=== PATIENT | female | born 1970 | race Caucasian/White ===

== ENCOUNTER → 2017-03-24 | Day surgery (SDC) | payer BC ==
[2017-03-24 09:37] VITALS: RESP 16; BMI 20.1
[2017-03-24 11:05] VITALS: BP 111/77; PULSE 71; TEMP 98
--- NOTE | 2017-03-24 11:40 | MM ---
Stereotactic Mammotome core biopsy left breast. HISTORY: Increasing microcalcifications left breast The calcifications in question within the left breast were targeted by the undersigned. Procedure was performed by the undersigned. Informed consent was obtained and all of the patients questions were answered. The standard sterile technique was utilized and appropriate local anesthesia was obtained with 1% lidocaine. Mammotome probe was advanced and multiple core samples were obtained and sent to pathology for interpretation. Microclip marker was deployed at the site of biopsy. Post procedural mammogram demonstrates appropriate deployment of radiopaque clip marker. The patient tolerated the procedure well and left the department in stable condition. Pathology results are pending. IMPRESSION: Successful stereotactic core biopsy left breast with pathology results pending. Pathology Results: Benign BREAST, LEFT SITE A, CORE BIOPSY: FIBROCYSTIC CHANGES INCLUDING FIBROSIS, CYSTS , APOCRINE METAPLASIA AND CALCIFICATIONS. Recommendation Follow up mammogram of the left breast in 6 months. RAJENDRA
== END ==
LOC: RADMAMWWP 09:03
PROVIDERS: ATTEND Student in an Organized Health Care Education/Training Program
DX: N60.32 Fibrosclerosis of left breast (principal); N60.82 Other benign mammary dysplasias of left breast; R92.1 Mammographic calcification found on diagnostic imaging of breast
CPT/HCPCS: 88305; 19081; A4648; J2001

== ENCOUNTER 2017-04-20 20:24 | Emergency (ER) | payer BC ==
[2017-04-20 20:34] VITALS: RESP 18
[2017-04-20 21:08] LABS: Amphetamine Screen,Urine Not Detected (NotDetected); Barbiturate Screen,Urine Not Detected (NotDetected); Benzodiazepines Screen,Urine Detected (NotDetected); Cocaine Screen,Urine Not Detected (NotDetected); Methadone Screen, Urine Not Detected (NotDetected); Opiate Screen,Urine Not Detected (NotDetected); Oxycodone Screen, Urine Not Detected (NotDetected); Phencyclidine Screen,Urine Not Detected (NotDetected); Tricyclic Antidepressant,Urine Not Detected (NotDetected); Urn Cannabinoid Scrn Not Detected (NotDetected)
--- NOTE | 2017-04-20 21:09 | ED ---
Psych HPI - General Chief Complaint: Psychiatric Symptoms Stated Complaint: Anxiety Time Seen by Provider: 04/20/17 20:36 Source: patient, RN notes reviewed Mode of arrival: ambulatory Limitations: no limitations - History of Present Illness Initial Comments: This a 46-year-old female presents emergency Department with chief complaint of depression and anxiety issues. Patient states she's been having worsening depression last 2 weeks. Patient saw primary care physician and had lab work which was normal started on Lexapro took first dose tonight though it upset her stomach she vomited. Patient states that this is a that time of year due to increased stress from her work and family activities. Patient states that she came to the point tonight where she felt that she did not want to wake up anymore. She states that she knows this is not right she does not want to kill herself but she cannot feel like this any longer. Denies any illicit drug use or alcohol abuse no homicidal ideation. - Related Data Home Medications Medication Instructions Recorded Confirmed ALPRAZolam [Xanax] 0.25 mg PO BID PRN 04/20/17 04/20/17 Escitalopram [Lexapro] 10 mg PO DAILY 04/20/17 04/20/17 Allergies Allergy/AdvReac Type Severity Reaction Status Date / Time Penicillins Allergy Rash/Hives Verified 04/20/17 21:10 Review of Systems ROS Statement: Those systems with pertinent positive or pertinent negative responses have been documented in the HPI. ROS Other: All systems not noted in ROS Statement are negative. Past Medical History Past Medical History: No Reported History History of Any Multi-Drug Resistant Organisms: None Reported Past Surgical History: Uterine Ablation Additional Past Surgical History / Comment(s): 2010 Breast biopsy Past Anesthesia/Blood Transfusion Reactions: No Reported Reaction Past Psychological History: Anxiety, Depression Smoking Status: Never smoker Past Alcohol Use History: Daily Past Drug Use History: None Reported General Exam Limitations: no limitations General appearance: alert, in no apparent distress Head exam: Present: atraumatic, normocephalic, normal inspection Eye exam: Present: normal appearance, PERRL, EOMI. Absent: scleral icterus, conjunctival injection, periorbital swelling ENT exam: Present: normal exam, normal oropharynx, mucous membranes moist, TM's normal bilaterally Neck exam: Present: normal inspection, full ROM. Absent: tenderness, meningismus, lymphadenopathy Respiratory exam: Present: normal lung sounds bilaterally. Absent: respiratory distress, wheezes, rales, rhonchi, stridor Cardiovascular Exam: Present: regular rate (Tachycardic on triage though not tachycardic on exam), normal rhythm, normal heart sounds. Absent: systolic murmur, diastolic murmur, rubs, gallop, clicks GI/Abdominal exam: Present: soft, normal bowel sounds. Absent: distended, tenderness, guarding, rebound, rigid Neurological exam: Present: alert, oriented X3, CN II-XII intact, reflexes normal. Absent: motor sensory deficit Psychiatric exam: Present: depressed, other (Patient is tearful) Skin exam: Present: warm, dry, intact, normal color. Absent: rash Course Vital Signs 04/20/17 20:26 Temperature 97.5 F L Pulse Rate 120 H Respiratory 18 Rate Blood Pressure 135/84 O2 Sat by Pulse 97 Oximetry Medical Decision Making - Medical Decision Making 38-year-old female presented from for psychiatric evaluation, depression. Patient was evaluated by EPS he did not recommend inpatient treatment. Patient was set up for outpatient services. Patient is stable and safe to go home with . - Lab Data Lab Results 04/20/17 Range/Units 20:45 Urine Opiates Screen Not Detected (NotDetected) Ur Oxycodone Screen Not Detected (NotDetected) Urine Methadone Screen Not Detected (NotDetected) Ur Propoxyphene Screen Not Detected (NotDetected) Ur Barbiturates Screen Not Detected (NotDetected) U Tricyclic Antidepress Not Detected (NotDetected) Ur Phencyclidine Scrn Not Detected (NotDetected) Ur Amphetamines Screen Not Detected (NotDetected) U Methamphetamines Scrn Detected H (NotDetected) U Benzodiazepines Scrn Detected H (NotDetected) Urine Cocaine Screen Not Detected (NotDetected) U Marijuana (THC) Screen Not Detected (NotDetected) Disposition Clinical Impression: Depression Disposition: HOME SELF-CARE Condition: Stable Instructions: Depression (ED) Additional Instructions: Please return to the Emergency Department if symptoms worsen or any other concerns. Referrals: Tab Grier MD [Primary Care Provider] - 1-2 days Time of Disposition: 00:45
[2017-04-21] MEDS ORDERED: LORazepam 1 MG TAB PO STA (00:28)
[2017-04-21 01:35] VITALS: BP 134/65; PULSE 90; TEMP 97
== END 2017-04-21 01:35 | disposition home or self-care (01) ==
LOC: EC 20:24
DX: F32.9 Major depressive disorder, single episode, unspecified (principal); F41.9 Anxiety disorder, unspecified; Z88.0 Allergy status to penicillin; Z79.899 Other long term (current) drug therapy
CPT/HCPCS: 80306; 82075; 99284

== ENCOUNTER → 2018-04-24 | Outpatient (CLI) | payer BC ==
--- NOTE | 2018-05-01 14:47 | MM ---
Reason for exam: screening (asymptomatic). Last mammogram was performed 1 year and 1 month ago. History: Family history of breast cancer in maternal aunt at age 50. Benign MG stereo VAD BX LT of the left breast, March 24, 2017. Benign left mammotome panel of the left breast, May 30, 2009. Benign right mammotome panel of the right breast, May 30, 2009. Took hormonal contraceptives for 6 years beginning at age 16. Physical Findings: A clinical breast exam by your physician is recommended on an annual basis and results should be correlated with mammographic findings. MG 3D Screening Mammo W/Cad Bilateral CC and MLO view(s) were taken. Prior study comparison: March 11, 2017, bilateral MG diagnostic mammo w CAD WILL. March 12, 2016, bilateral MG screening mammo w CAD. The breast tissue is extremely dense which could obscure a lesion on mammography. Previous mammotome biopsy in the right breast x 1 and in the left breast x 2. Diffuse bilateral calcifications redemonstrated. No significant changes when compared with prior studies. ASSESSMENT: Benign, BI-RAD 2 RECOMMENDATION: Routine screening mammogram of both breasts in 1 year. Patient should continue monthly self breast exams. A negative report should not preclude additional follow up of suspicious palpable abnormalities.
== END | disposition home or self-care (01) ==
LOC: RADMAMWWP 07:27
PROVIDERS: ATTEND Obstetrics & Gynecology
DX: Z12.31 Encounter for screening mammogram for malignant neoplasm of breast (principal)
CPT/HCPCS: 77063; 77067

== ENCOUNTER → 2019-04-30 | Outpatient (CLI) | payer BC ==
--- NOTE | 2019-04-30 08:18 | MM ---
Reason for exam: additional evaluation requested from prior study. Last mammogram was performed 1 year ago. History: Family history of breast cancer in maternal aunt at age 50. Benign MG stereo VAD BX LT of the left breast, March 24, 2017. Benign left mammotome panel of the left breast, May 30, 2009. Benign right mammotome panel of the right breast, May 30, 2009. Took hormonal contraceptives for 6 years beginning at age 16. Physical Findings: Nurse Summary: 2cm nodule in the left breast at 1 o'clock (nurse alan). MG 3D Diag Mammo W/Cad WILL Bilateral CC and MLO view(s) were taken. Prior study comparison: April 24, 2018, bilateral MG 3d screening mammo w/cad. March 11, 2017, bilateral MG diagnostic mammo w CAD WILL. The breast tissue is extremely dense which could obscure a lesion on mammography. Benign appearing bilateral diffuse calcifications. No suspicious abnormality. Bilateral biopsy markers noted. No significant new findings when compared with previous films. These results were verbally communicated with the patient and result sheet given to the patient on 04/30/19. ASSESSMENT: Benign, BI-RAD 2 RECOMMENDATION: Routine screening mammogram of both breasts in 1 year.
== END | disposition home or self-care (01) ==
LOC: RADMAMWWP 07:23
PROVIDERS: ATTEND Obstetrics & Gynecology
DX: R92.8 Other abnormal and inconclusive findings on diagnostic imaging of breast (principal)
CPT/HCPCS: 77062; 77066

== ENCOUNTER → 2020-01-18 | Outpatient (CLI) | payer BC ==
--- NOTE | 2020-01-18 12:28 | MM ---
Reason for exam: clinical finding. Last mammogram was performed 9 months ago. History: Benign MG stereo VAD BX LT of the left breast, March 24, 2017. Benign left mammotome panel of the left breast, May 30, 2009. Benign right mammotome panel of the right breast, May 30, 2009. Took hormonal contraceptives for 6 years beginning at age 16. Indicated problem(s): lump or thickening in the right breast. Physical Findings: Nurse Summary: 2.5cm nodule in the left breast at 2 o'clock (nurse TM). MG 3D Diag Mammo W/Cad RT CC and MLO view(s) were taken of the right breast. Prior study comparison: April 30, 2019, bilateral MG 3d diag mammo w/cad WILL. April 24, 2018, bilateral MG 3d screening mammo w/cad. The breast tissue is extremely dense which could obscure a lesion on mammography. Finding: There are round, diffuse/scattered calcifications in the right breast. Previous mammotome biopsy in the right breast. No significant changes in finding since April 30, 2019 and April 24, 2018. These results were verbally communicated with the patient and result sheet given to the patient on 01/18/20. ASSESSMENT: Incomplete: need additional imaging evaluation, BI-RAD 0 RECOMMENDATION: Ultrasound of the right breast.
--- NOTE | 2020-01-18 12:31 | USB ---
Reason for exam: additional evaluation requested from abnormal screening. History: Benign MG stereo VAD BX LT of the left breast, March 24, 2017. Benign left mammotome panel of the left breast, May 30, 2009. Benign right mammotome panel of the right breast, May 30, 2009. Took hormonal contraceptives for 6 years beginning at age 16. US Breast RT Right complete breast ultrasound includes all four quadrants, the retroareolar region and axilla. Finding demonstrates a 1.6 x 0.9 x 1.0cm oval, cystic cluster at 1 o'clock, a 1.2 x 0.8 x 1.4cm oval, solid, hypoechoic lesion at 3 o'clock, suspicious, biopsy recommended and a 3.9 x 1.1 x 3.9cm oval, cystic lesion at 5 o'clock. These results were verbally communicated with the patient and result sheet given to the patient on 01/18/20. ASSESSMENT: Suspicious, BI-RAD 4 RECOMMENDATION: Ultrasound core biopsy of the right breast. (3 o'clock palpable) Called Dr. Powers's office with mammographic findings and has scheduled an appointment for the patient for 02/06/20 at 9:[address] Hollingsworth. Biopsy scheduled for 01/30/20 at 1:00. PRELIMINARY REPORT CALLED AND FAXED TO DR. HOLLINGSWORTH ON 01/18/20.
== END | disposition home or self-care (01) ==
LOC: RADMAMWWP 10:09
PROVIDERS: ATTEND Obstetrics & Gynecology
DX: N63.0 Unspecified lump in unspecified breast (principal)
CPT/HCPCS: 77061; 77065

== ENCOUNTER → 2020-01-30 | Day surgery (SDC) | payer BC ==
[2020-01-30 14:38] VITALS: BP 127/83; PULSE 74; RESP 16; TEMP 98.1
--- NOTE | 2020-01-30 14:49 | USB ---
EXAMINATION TYPE: US biopsy breast VAD RT DATE OF EXAM: 01/30/2020 CLINICAL HISTORY: N63 breast lump. TECHNIQUE: Ultrasound guided vaccuum assisted core biopsy of right breast. COMPARISON: NONE FINDINGS: The ultrasound guided core biopsy procedure was explained to the patient. The risks, benefits, alternatives were discussed. An informed consent was then obtained. Timeout was performed. The patient was placed in supine positioning for imaging and for the procedure. The overlying skin was prepped with betadine and sterilely draped in usual sterile fashion. Lidocaine 1% was used as anesthetic into the skin and deeper breast tissue up to area of concern in the breast. A small skin vandana was made with surgical scalpel. Under ultrasound guidance, a 12-gauge vacuum assisted biopsy device was used to obtain 4 core samples. A biopsy clip was left in lesion. Ribbon clip was placed. Good hemostasis was obtained with direct pressure. Discharge instructions were discussed with the patient. The patient will follow up with the referring physician for results. Postprocedure mammogram: The patient was transferred to mammography for physician ordered post procedure mammogram for clip placement verification. The clip is in the expected region of the biopsy. The patient tolerated the procedure well without any immediate complication. The patient was discharged to home in stable condition. IMPRESSION: 1. Successful ultrasound guided biopsy right breast. Recommendations: 1. Recommendations are pending pathology results. 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 See Surgical Pathology Cancer Case Summary and comment. Recommendation Surgical consult of the right breast. RAJENDRA
--- NOTE | 2020-01-30 14:51 | MM ---
EXAMINATION TYPE: US biopsy breast VAD RT DATE OF EXAM: 01/30/2020 CLINICAL HISTORY: N63 breast lump. TECHNIQUE: Ultrasound guided vaccuum assisted core biopsy of right breast. COMPARISON: NONE FINDINGS: The ultrasound guided core biopsy procedure was explained to the patient. The risks, benef its, alternatives were discussed. An informed consent was then obtained. Timeout was performed. The patient was placed in supine positioning for imaging and for the procedure. The overlying skin w as prepped with betadine and sterilely draped in usual sterile fashion. Lidocaine 1% was used as ane sthetic into the skin and deeper breast tissue up to area of concern in the breast. A small skin era k was made with surgical scalpel. Under ultrasound guidance, a 12-gauge vacuum assisted biopsy device was used to obtain 4 core samples . A biopsy clip was left in lesion. Ribbon clip was placed. Good hemostasis was obtained with direct pressure. Discharge instructions were discussed with the flaco allen. The patient will follow up with the referring physician for results. Postprocedure mammogram: The patient was transferred to mammography for physician ordered post proced ure mammogram for clip placement verification. The clip is in the expected region of the biopsy. The patient tolerated the procedure well without any immediate complication. The patient was dischar ged to home in stable condition. IMPRESSION: 1. Successful ultrasound guided biopsy right breast. Recommendations: 1. Recommendations are pending pathology results.
== END ==
LOC: RADUSWWP 12:03
PROVIDERS: ATTEND Student in an Organized Health Care Education/Training Program
DX: C50.911 Malignant neoplasm of unspecified site of right female breast (principal)
CPT/HCPCS: 88305; 88342; 88341; 77065; 19083; A4648; J2001

== ENCOUNTER → 2020-02-25 | Outpatient (CLI) | payer BC ==
--- NOTE | 2020-02-25 11:19 | USB ---
Reason for exam: clinical finding. History: Patient has history of breast cancer at age 49. Malignant US biopsy breast VAD RT of the right breast, January 30, 2020. Benign MG stereo VAD BX LT of the left breast, March 24, 2017. Benign left mammotome panel of the left breast, May 30, 2009. Benign right mammotome panel of the right breast, May 30, 2009. Took hormonal contraceptives for 6 years beginning at age 16. US Breast Limited LT Left limited breast ultrasound including focal area of concern, retroareolar and axilla demonstrates a 9 x 5 x 7mm lobular, mixed lesion at 1 o'clock BB, complex, biopsy recommended, a 5 x 4 x 5mm oval, cystic lesion at 2 o'clock, a 8 x 4 x 10mm lobular, cystic lesion at 2 o'clock and a 8 x 7 x 9mm oval, cystic lesion at 3 o'clock. These results were verbally communicated with the patient and result sheet given to the patient on 02/25/20. ASSESSMENT: Suspicious, BI-RAD 4 RECOMMENDATION: Ultrasound core biopsy of the left breast. (1 o'clock) Called office with mammographic findings and has scheduled an appointment for the patient for at with Dr. Hollingsworth. Biopsy scheduled for 03/03/20 at 1:00. PRELIMINARY REPORT CALLED AND FAXED TO DR. HOLLINGSWORTH ON 02/25/20.
== END | disposition home or self-care (01) ==
LOC: RADUSWWP 09:25
PROVIDERS: ATTEND Student in an Organized Health Care Education/Training Program
DX: N63.20 Unspecified lump in the left breast, unspecified quadrant (principal)

== ENCOUNTER → 2020-03-03 | Day surgery (SDC) | payer BC ==
[2020-03-03 12:21] VITALS: PULSE 73; TEMP 98.1
[2020-03-03 14:34] VITALS: BP 143/88; RESP 16
--- NOTE | 2020-03-03 16:18 | USB ---
EXAMINATION TYPE: US biopsy breast VAD LT, MG post biopsy diagnostic mammo LT wo CAD DATE OF EXAM: 03/03/2020 CLINICAL HISTORY: 49-year-old female with biopsy-proven right breast cancer. Referred for biopsy of a palpable complex cyst/cyst cluster of the left breast. R92.8 ABN MAMMO. TECHNIQUE: Ultrasound guided core biopsy of 1:00 left breast. COMPARISON: 04/30/2019 FINDINGS: The procedure of ultrasound guided core biopsy was explained to the patient. Benefits, alternatives, and risks were discussed. An informed consent was then obtained. The patient was placed in supine positioning for imaging and for the procedure. The overlying skin was prepped and draped in usual sterile fashion. Lidocaine was used as anesthetic into the skin and subcutaneous tissue up to area of concern in the 1:00 left breast. Under ultrasound guidance, a 13-gauge vacuum-assisted mammotome Elite biopsy gun was used to obtain 6 core samples. Following this, a coil clip was left in lesion. The patient tolerated the procedure well without any immediate complication. The patient was kept in the radiology department for short stay after the procedure and then discharged home in stable condition. Postbiopsy mammogram shows coil clip in the upper outer quadrant adjacent to a previous microclip. IMPRESSION: Successful, uncomplicated ultrasound guided core biopsy of a palpable either complex cyst or cyst cluster within the 1:00 left breast. Biopsy proven malignancy within the right breast. Full pathology results to follow. Appropriate surgical management of known right breast malignancy. Pathology Results: Benign LEFT BREAST, 1:00, ULTRASOUND GUIDED CORE BIOPSY: Fibrocystic changes including sclerosing adenosis with calcifications, cysts, fibrosis, and apocrine metaplasia. Recommendation Surgical consult of the right breast. Appropriate surgical/oncologic management of biopsy proven malignancy in the right breast. MTDD
== END ==
LOC: RADUSWWP 12:01
PROVIDERS: ATTEND Student in an Organized Health Care Education/Training Program
DX: N60.12 Diffuse cystic mastopathy of left breast (principal); N60.22 Fibroadenosis of left breast; N60.82 Other benign mammary dysplasias of left breast; C50.911 Malignant neoplasm of unspecified site of right female breast
CPT/HCPCS: 88305; 77065; 19083; A4648; J2001

== ENCOUNTER → 2020-03-10 | Outpatient (CLI) | payer BC | END | disposition home or self-care (01) | LOC: LABPAT 16:42 | PROVIDERS: ATTEND Student in an Organized Health Care Education/Training Program | DX: Z20.828 Contact with and (suspected) exposure to other viral communicable diseases (principal) ==

== ENCOUNTER → 2020-03-11 | Outpatient (CLI) | payer BC ==
[2020-03-11 13:15] LABS: Basophils % (A) 1 %; Eosinophils # (A) 0.2 k/uL (0-0.7); Eosinophils % (A) 3 %; HGB 15.6 gm/dL (11.4-16.0); Lymphocytes # (A) 2.1 k/uL (1.0-4.8); Lymphocytes % (A) 25 %; MCH 31.1 pg (25.0-35.0); MCHC 32.6 g/dL (31.0-37.0); MCV 95.3 fL (80.0-100.0); Mean Platelet Volume 7.3; Monocytes # (A) 0.3 k/uL (0-1.0); Monocytes % (A) 4 %; Neutrophils # (A) 5.7 k/uL (1.3-7.7); Neutrophils % (A) 67 %; Platelet Count 299 k/uL (150-450); RBC 5.04 m/uL (3.80-5.40); RDW 12.5 % (11.5-15.5); WBC 8.6 k/uL (3.8-10.6)
[2020-03-11 20:23] LABS: African American GFR (CKD) 85.8 (60.0-200.0); Albumin 4.8 g/dL (3.80-4.90); Albumin/Globulin Ratio 2.29 (1.60-3.17); Anion Gap 11.1 mmol/L (4.00-12.00); Calcium 9.6 mg/dL (8.7-10.3); Carbon Dioxide 23.9 mmol/L (21.6-31.8); Globulin 2.1 g/dL (1.6-3.3); Potassium 4.2 mmol/L (3.5-5.5); Total Bilirubin 0.8 mg/dL (0.2-1.2); Total Protein 6.9 g/dL (6.2-8.2)
== END | disposition home or self-care (01) ==
LOC: LABWHC1 11:36
PROVIDERS: ATTEND Student in an Organized Health Care Education/Training Program
DX: C50.911 Malignant neoplasm of unspecified site of right female breast (principal)
CPT/HCPCS: 36415; 80053; 83615; 85025

== ENCOUNTER 2020-03-13 10:18 | Day surgery (SDC) | payer BC ==
[2020-03-11 09:24] VITALS: BMI 22.4
[~2020-03-13 10:18] MED LIST: DEXAMETHASONE SOD PHOSPHATE 4 MG/ML 1 ML VIAL IV ONE; HEPARIN SODIUM,PORCINE 5,000 UNIT/ML 1 ML VIAL SQ PRN; HYDROmorphone 0.5 MG/0.5 ML SYRINGE IVP PRN; LACTATED RINGERS 1,000 ML IV SCH; LIDOCAINE 1% (10MG/ML) FOR IV START INTRADERMA PRN; MIDAZOLAM 2 MG/2 ML VIAL IV PRN; ONDANSETRON 4 MG/2 ML VIAL IVP ONE; Pre Op ABX Message 1 EACH MISC MISCELLANE ONE
[2020-03-13] MEDS ORDERED: ALPRAZolam 0.5 MG TAB ONE (11:08)
[2020-03-13] MEDS ORDERED: ALPRAZolam 0.5 MG TAB PO ONE (11:14)
[2020-03-13] MEDS ORDERED: LIDOCAINE 1% INJ 10MG/ML (20 ML MDV) SQ ONE (12:08)
--- NOTE | 2020-03-13 13:01 | NM ---
EXAMINATION TYPE: NM sentinel node injection DATE OF EXAM: 03/13/2020 COMPARISON: NONE INDICATION: Abnormal mammogram. Informed consent was obtained. A timeout was performed. The area around the right nipple was cleansed with alcohol. In a single dose, a total of 497 microcu edu Technetium 99m Tilmanocept was injected upper outer quadrant. The patient tolerated the procedu re very well. IMPRESSIONS: 1. Successful injection for sentinel node evaluation.
[2020-03-13] MEDS ORDERED: ePHEDrine SULFATE/0.9% NACL/PF 50 MG/5 ML SYRINGE IV ONE (13:27)
[2020-03-13] MEDS ORDERED: KETOROLAC 15 MG/ML 1 ML VIAL ONE (13:27)
[2020-03-13] MEDS ORDERED: PHENYLEPHRINE 10 MG/ML VIAL ONE (13:27)
[2020-03-13] MEDS ORDERED: SUCCINYLCHOLINE CHLORIDE 100 MG/5 ML SYR IV ONE (13:27)
[2020-03-13] MEDS ORDERED: BUPIVACAINE (PF) 0.25% 30 ML VIAL SQ ONE ×2 (13:27→15:01)
[2020-03-13] MEDS ORDERED: fentaNYL (PF) 50 MCG/ML 2 ML AMP ONE (13:27)
[2020-03-13] MEDS ORDERED: LIDOCAINE 1% INJ 10MG/ML (20 ML MDV) ONE (13:27)
[2020-03-13] MEDS ORDERED: METHYLENE BLUE 10 MG/ML (10 ML VIAL) MISCELLANE ONE ×2 (13:27→13:36)
[2020-03-13] MEDS ORDERED: MIDAZOLAM 2 MG/2 ML VIAL ONE (13:27)
[2020-03-13] MEDS ORDERED: PROPOFOL 10 MG/ML 20 ML VIAL IV ONE (13:27)
--- NOTE | 2020-03-13 15:17 | P.OP ---
Date of Procedure: 03/13/20 Preoperative Diagnosis: Invasive ductal carcinoma of right breast Postoperative Diagnosis: same Procedure(s) Performed: Lumpectomy of right breast with sentinel lymph node biopsy Anesthesia: ADELINA Surgeon: Oscar Snell Estimated Blood Loss (ml): 10 Condition: stable Disposition: PACU Description of Procedure: Patient brought into the operative suite remained in the supine position underwent general endotracheal anesthesia per Department of anesthesia she was prepped and draped in usual sterile fashion timeout was performed correct patient correct procedure correct site was verified. Prior to being prepped and draped the patient previously had a needle localization of the breast cancer on the right breast along with radionucleotide injection. Patient was also injected periareolar with 4 mL of methylene blue diluted with 4 mL of normal saline. Attention was then turned to the right axilla where a for sending incision was made along the hairline. This was carried down and using the neoprobe the first sentinel lymph node was identified it was noted to be blue and hot at [id number]. This was excised and sent to pathology. A second sentinel node was also noted to be hot and blue this was excised there is no further activity in the neoprobe within the right axilla. No suspicious palpable nodes were felt. Hemostasis was achieved and the wound was packed with a saline soaked sterile sponge. Attention was turned to the right breast which previously had the needle localization performed a 4 cm incision was made directly over the wire which was brought into the incision circumferentially flaps were created and the specimen was excised being sure to include the wire and clip within the specimen. This was marked with a short superior long lateral stitch. This was sent to mammography to confirm mammography did confirm that the wire and clip were both within the specimen. An extra lateral margin was taken and marked with a short superior long lateral stitch. Hemostasis was achieved the wounds were both irrigated the sponge was removed from the right axillary incision and both wounds were closed with 3-0 Vicryl subdermal sutures followed by 4-0 running subcuticular sutures sterile dressing was applied patient tolerated the procedure well all sponge and needle counts were correct. Plan - Discharge Summary Discharge Rx Participant: No New Discharge Prescriptions: No Action ALPRAZolam [Xanax] 0.25 mg PO BID PRN PRN Reason: Anxiety Cetirizine HCl [Zyrtec] 10 mg PO DAILY Discharge Medication List ALPRAZolam [Xanax] 0.25 mg PO BID PRN 04/20/17 [History] Cetirizine HCl [Zyrtec] 10 mg PO DAILY 03/03/20 [History]
[2020-03-13 15:58] VITALS: TEMP 97.5
[2020-03-13 16:03] VITALS: RESP 16
[2020-03-13] MEDS ORDERED: LACTATED RINGERS 1,000 ML IV ONE (16:12)
--- NOTE | 2020-03-13 16:18 | MM ---
EXAMINATION TYPE: US breast localization RT DATE OF EXAM: 03/13/2020 CLINICAL HISTORY: C50.911 right breast carcinoma. TECHNIQUE: Ultrasound guided wire localization right breast COMPARISON: 01/30/2020 FINDINGS: Wire localization was discussed, the risks and benefits. Timeout was performed. The patient was placed in supine positioning for imaging and for the procedure. The overlying skin w as prepped with chlorhexidine. Lidocaine 1% was used as anesthetic into the skin and deeper breast t issue up to area of concern in the breast. Under ultrasound guidance, a 7 cm wire was placed through the posterior portion of the lesion. Clip w as identified during the ultrasound. Follow-up mammogram was performed for wire localization confirmation of positioning. The wire is orestes cent to the surgical clip. The patient tolerated the procedure well without any immediate complication. Patient was then prepare d for sentinel node localization. Specimen: Single mammographic specimen is presented. The wire is within the specimen. The clip is wit hin the specimen. IMPRESSION: 1. Successful ultrasound guided wire localization right breast. Recommendations: 1. Recommendations are pending pathology results.
--- NOTE | 2020-03-13 16:18 | USB ---
EXAMINATION TYPE: US breast localization RT DATE OF EXAM: 03/13/2020 CLINICAL HISTORY: C50.911 right breast carcinoma. TECHNIQUE: Ultrasound guided wire localization right breast COMPARISON: 01/30/2020 FINDINGS: Wire localization was discussed, the risks and benefits. Timeout was performed. The patient was placed in supine positioning for imaging and for the procedure. The overlying skin was prepped with chlorhexidine. Lidocaine 1% was used as anesthetic into the skin and deeper breast tissue up to area of concern in the breast. Under ultrasound guidance, a 7 cm wire was placed through the posterior portion of the lesion. Clip was identified during the ultrasound. Follow-up mammogram was performed for wire localization confirmation of positioning. The wire is adjacent to the surgical clip. The patient tolerated the procedure well without any immediate complication. Patient was then prepared for sentinel node localization. Specimen: Single mammographic specimen is presented. The wire is within the specimen. The clip is within the specimen. IMPRESSION: 1. Successful ultrasound guided wire localization right breast. Recommendations: 1. Recommendations are pending pathology results. Pathology Results: Malignant A. SENTINEL NODE #1, BIOPSY: Lymph node positive for metastasis. Size of metastatic deposit measures 2.5 mm. CK7 and FELECIA immunoperoxidase stains are confirmatory (controls appropriate). B. SENTINEL NODE #2, BIOPSY: Lymph node negative for metastasis. CK7 and FELECIA immunoperoxidase stains are confirmatory (controls appropriate). C. RIGHT BREAST, LUMPECTOMY: Invasive well differentiated ductal carcinoma (Grade 1) and low grade DCIS. Invasive tumor involves the lateral margin. Other margins negative. See Surgical Pathology Cancer Case Summary. D. RIGHT BREAST EXTENDED LATERAL MARGIN, EXCISION: Invasive well differentiated ductal carcinoma (Grade 1) and low grade DCIS, new lateral margin negative for malignancy. See comment. Recommendation Surgical consult of the right breast. [facility]
[2020-03-13 17:01] VITALS: BP 133/81; PULSE 98
--- NOTE | 2020-03-17 10:58 | CDI ---
Date: 03.17.2020 CDS/Supply Tech Name: Barbara Crenshaw Phone: If any questions, call Alisha Messer Divisional Storekeeper at [phone] Patient Name: Blanca Garcia Admit Date 03.13.20 Discharge Date: 03.13.20 ATTENTION: The [facility] Coding Staff appreciate your assistance in clarifying documentation. Please respond to the clarification below the line at the bottom and electronically sign. The [facility] Coding staff will review the response and follow-up if needed. Please note: Queries are made part of the Legal Health Record. If you have any questions, please contact the Divisional Storekeeper. Dear Dr. Snell In order to code to the greatest specificity and for the greatest reimbursement I need the following information: Please document whether the sentinel lymph nodes that were excised were deep or superficial Thank you for your kind consideration. They were axillary lymph nodes. This is the standard procedure for axillary lymph node biopsy and it is not standard to specify deep vs. superficial. Axillary nodes are classified in surgical text by levels. These nodes came from level 1. MTDD
== END 2020-03-13 17:18 | disposition home or self-care (01) ==
LOC: OR 10:18
PROVIDERS: ATTEND Student in an Organized Health Care Education/Training Program
DX: C50.911 Malignant neoplasm of unspecified site of right female breast (principal); C77.3 Secondary and unspecified malignant neoplasm of axilla and upper limb lymph nodes; N60.11 Diffuse cystic mastopathy of right breast; K75.9 Inflammatory liver disease, unspecified; Z98.890 Other specified postprocedural states; Z79.899 Other long term (current) drug therapy; Z88.0 Allergy status to penicillin; Z83.3 Family history of diabetes mellitus
CPT/HCPCS: 19301; 81025; 86900; 86901; 86850; 88342; 88307; 88341; 77065; 76098; 19285; 38792; 38525; A9520; J2250; J1644; J1100; J2370; J2405; J2001; Q9968; J3010; J1885; J0330; J2704

== ENCOUNTER → 2020-06-23 | Outpatient (CLI) | payer BC ==
--- NOTE | 2020-06-23 07:36 | US ---
EXAMINATION TYPE: US liver DATE OF EXAM: 06/23/2020 COMPARISON: NONE CLINICAL HISTORY: Liver lesion R16.0. abnormal labs. Breast cancer. EXAM MEASUREMENTS: Liver Length: 14.5 cm Gallbladder Wall: 0.2 cm CBD: 0.4 cm Right Kidney: 10.7 x 3.9 x 4.2 cm Pancreas: wnl Liver: wnl Gallbladder: wnl Evidence for sonographic Ordonez's sign: neg CBD: wnl Right Kidney: No hydronephrosis or masses seen IMPRESSION: No distinct abnormality appreciated.
== END | disposition home or self-care (01) ==
LOC: RADUSWWP 06:58
PROVIDERS: ATTEND Internal Medicine Hematology & Oncology
DX: R94.5 Abnormal results of liver function studies (principal); Z88.0 Allergy status to penicillin
CPT/HCPCS: 76705

== ENCOUNTER → 2020-09-29 | Outpatient (CLI) | payer BC ==
--- NOTE | 2020-09-29 11:51 | USB ---
Reason for exam: clinical finding. History: Patient is postmenopausal and has history of breast cancer at age 49. Malignant US breast localization RT of the right breast, March 13, 2020. Lumpectomy of the right breast, March 13, 2020. Benign US biopsy breast VAD LT of the left breast, March 03, 2020. Malignant US biopsy breast VAD RT of the right breast, January 30, 2020. Benign MG stereo VAD BX LT of the left breast, March 24, 2017. Benign left mammotome panel of the left breast, May 30, 2009. Benign right mammotome panel of the right breast, May 30, 2009. Took hormonal contraceptives for 6 years beginning at age 16. Indicated problem(s): palpable abnormality in the right breast. Physical Findings: Nurse Summary: 4cm palpable (nurse ms). US Breast RT Right complete breast ultrasound includes all four quadrants, the retroareolar region and axilla. Finding demonstrates a 0.9 x 0.6 x 0.9cm cystic lesion at 1 o'clock, a 3.0 x 0.4 x 2.1cm fluid collection post operative seroma at 3 o'clock, a 0.9 x 0.5 x 0.7cm mixed lesion at 3 o'clock, suspicious, ultrasound guided biopsy recommended, a 4.3 x 2.2 x 3.8cm cystic, large cyst at 5 o'clock, a 0.6 x 0.3 x 0.6cm cystic lesion at 9 o'clock and a 0.6 x 0.4 x 0.6cm cystic lesion at 11 o'clock. These results were verbally communicated with the patient and result sheet given to the patient on 09/29/20. ASSESSMENT: Suspicious, BI-RAD 4 RECOMMENDATION: Ultrasound core biopsy of the right breast. Called Dr. Seals's office with mammographic findings and has scheduled an appointment for the patient for 10/15/20 at 9:[address] Hollingsworth. Biopsy scheduled for 10/09/20 at 1:00. PRELIMINARY REPORT CALLED AND FAXED TO DR. HOLLINGSWORTH ON 09/29/20.
--- NOTE | 2020-09-29 11:53 | MM ---
Reason for exam: clinical finding. Last mammogram was performed 7 months ago. History: Patient is postmenopausal and has history of breast cancer at age 49. Malignant US breast localization RT of the right breast, March 13, 2020. Lumpectomy of the right breast, March 13, 2020. Benign US biopsy breast VAD LT of the left breast, March 03, 2020. Malignant US biopsy breast VAD RT of the right breast, January 30, 2020. Benign MG stereo VAD BX LT of the left breast, March 24, 2017. Benign left mammotome panel of the left breast, May 30, 2009. Benign right mammotome panel of the right breast, May 30, 2009. Took hormonal contraceptives for 6 years beginning at age 16. Physical Findings: Nurse Summary: 4-5cm nodule in the right breast at 3 o'clock (nurse ms). MG 3D Diag Mammo W/Cad RT CC and MLO view(s) were taken of the right breast. Prior study comparison: March 13, 2020, right breast MG diagnostic mammo RT wo CAD. March 03, 2020, left breast MG diagnostic mammo LT wo CAD. Right 3 o'clock 4cm waxing and waning cyst, ultrasound core biopsy recommended. Bilateral scattered calcifications. These results were verbally communicated with the patient and result sheet given to the patient on 09/29/20. ASSESSMENT: Incomplete: need additional imaging evaluation, BI-RAD 0 RECOMMENDATION: Ultrasound of the right breast.
== END | disposition home or self-care (01) ==
LOC: RADUSWWP 09:29
PROVIDERS: ATTEND Internal Medicine Hematology & Oncology
DX: R89.9 Unspecified abnormal finding in specimens from other organs, systems and tissues (principal)
CPT/HCPCS: 77061; 77065

== ENCOUNTER → 2020-10-09 | Day surgery (SDC) | payer BC ==
[2020-10-09 12:09] VITALS: RESP 16
[2020-10-09 14:01] VITALS: BP 130/85; PULSE 81; TEMP 98.2
--- NOTE | 2020-10-09 15:45 | USB ---
EXAMINATION TYPE: US biopsy breast VAD RT, MG diagnostic mammo RT wo CAD DATE OF EXAM: 10/09/2020 CLINICAL HISTORY: R92.8 ABNORMAL MAMMOGRAM. TECHNIQUE: Ultrasound guided core biopsy of right breast. COMPARISON: 09/29/2020 FINDINGS: The procedure of ultrasound guided core biopsy was explained to the patient. Benefits, alternatives, and risks were discussed. An informed consent was then obtained. The patient was placed in supine positioning for imaging and for the procedure. The overlying skin was prepped and draped in usual sterile fashion. Lidocaine buffered with bicarbonate was used as anesthetic into the skin and subcutaneous tissue up to area of concern in the right breast. Skin vandana was made with surgical scalpel. Under ultrasound guidance, a 12-gauge vacuum assisted biopsy gun device was used to obtain 4 core samples. Following this, a biopsy clip was deployed in the lesion. This cannot be visualized under ultrasound some additional biopsy clip was deployed.. The patient tolerated the procedure well without any immediate complication. The patient was kept in the radiology department for short stay after the procedure and then discharged home in stable condition. 2 views of mammogram show 2 biopsy marker clips in the lesion. IMPRESSION: Successful, uncomplicated ultrasound guided core biopsy of area of concern in the right breast. Full pathology results are to follow. Pathology Results: Benign RIGHT BREAST, 3:00, ULTRASOUND GUIDED CORE BIOPSY: Fibrocystic changes including fibrosis, small cysts and microcalcifications. Recommendation Follow up mammogram and ultrasound of the right breast in 6 months. RAJENDRA
== END ==
LOC: RADUSWWP 11:42
PROVIDERS: ATTEND Student in an Organized Health Care Education/Training Program
DX: N60.11 Diffuse cystic mastopathy of right breast (principal); R92.0 Mammographic microcalcification found on diagnostic imaging of breast; Z88.0 Allergy status to penicillin; Z88.8 Allergy status to other drugs, medicaments and biological substances
CPT/HCPCS: 88305; 77065; 19083; A4648; J2001

== ENCOUNTER → 2020-12-16 | Outpatient (CLI) | payer BC ==
--- NOTE | 2020-12-16 19:59 | BD ---
EXAMINATION TYPE: Axial Bone Density DATE OF EXAM: 12/16/2020 COMPARISON: NONE CLINICAL HISTORY: Postmenopausal screening Height: 66 Weight: 136.5 FRAX RISK QUESTIONS: Alcohol (3 or more units per day): no Family History (Parent hip fracture): no Glucocorticoids (More than 3mos): no (Ex: prednisone, prednisolone, methylprednisolone, dexamethasone, and hydrocortisone). History of Fracture in Adulthood: no Secondary Osteoporosis: no 1. Type 1 Diabetes: no 2. Hyperthyroidism: no 3. Menopause before 45: no 4. Malnutrition: no 5. Chronic liver disease: no Rheumatoid Arthritis: no Current Tobacco Use: no RISK FACTORS HISTORY OF: History of Wrist Fracture: bilateral wrist When: as a child Surgery to Spine/Hip(right/left)/Wrist (right/left): no Family History of Osteoporosis: yes Active: yes Diet low in dairy products/other sources of calcium: yes Postmenopausal woman: yes Lost more than 2 inches in height since high school: no MEDICATIONS: anastrozole, vit c,d, xanax Additional History: EXAM MEASUREMENTS: Bone mineral densitometry was performed using the [employer] System. Bone mineral density as measured about the Lumbar spine is: ----- L1-L4(G/cm2): 1.078 T Score Values are as follows: ----- L2: -0.6 ----- L3: -0.8 ----- L4: -1.4 ----- L1-L4: -0.9 Bone mineral density : baseline Bone mineral density about the R hip (g/cm2): 0.752 Bone mineral density about the L hip (g/cm2): 0.755 T Score values are as follows: -----R Neck: -2.1 -----L Neck: -2.0 -----R Total: -2.0 -----L Total: -2.0 Bone mineral density : baseline IMPRESSION: Osteopenia (T Score between -2.5 and -1). There is slightly increased risk of fracture and the patient may be considered for treatment. Re-Screen 2-5 years. NOTE: T-SCORE=SD OF THE YOUNG ADULT MEAN.
== END | disposition home or self-care (01) ==
LOC: RADBDWWP 09:50
PROVIDERS: ATTEND Internal Medicine Hematology & Oncology
DX: C50.411 Malignant neoplasm of upper-outer quadrant of right female breast (principal); M85.80 Other specified disorders of bone density and structure, unspecified site; Z79.890 Hormone replacement therapy
CPT/HCPCS: 77080

== ENCOUNTER → 2021-11-19 | Outpatient (CLI) | payer BC ==
--- NOTE | 2021-11-19 15:21 | USB ---
Reason for Exam: Follow-up at short interval from prior study. Patient History: Menarche at age 12. First Full-Term at age 24. Left ovary removed at age 49. Right ovary removed at age 49. Postmenopausal. Breast cancer, age 49. Hormonal Contraceptives for 6 years from age 16 until age 22. 03/13/2020, Lumpectomy on the Right side. 10/09/2020, Benign Core Biopsy on the right side. 03/13/2020, Malignant Core Biopsy on the right side. 03/03/2020, Benign Core Biopsy on the left side. 01/30/2020, Malignant Core Biopsy on the right side. 03/24/2017, Benign Core Biopsy on the left side. 05/30/2009, Benign Core Biopsy on the left side. 05/30/2009, Benign Core Biopsy on the right side. Technique: Method: Targeted. Prior Study Comparison: 09/29/2020 Right Diagnostic Mammogram, [facility]. 10/09/2020 Right Diagnostic Mammogram, [facility]. 05/20/2021 Bilateral Diagnostic Mammogram, [facility]. Findings: The area of palpable concern of the right breast, the axilla of the right breast and the retroareolar of the right breast were scanned. There is a 2.5 x 1.8 x 2.8 cm mixed echo smoothly marginated lesion likely reflecting seroma or complex cyst versus prior measurement of 2.9 x 2.4 x 2.1 cm. No new lesions seen. Overall Assessment: Probably benign, BI-RAD 3 Management: Diagnostic Breast Ultrasound of the right breast. A clinical breast exam by your physician is recommended on an annual basis and results should be correlated with mammographic findings. Electronically signed and approved by: Willian Hope M.D. Radiologis
== END | disposition home or self-care (01) ==
LOC: RADMAMWWP 14:10
PROVIDERS: ATTEND Internal Medicine Hematology & Oncology
DX: Z85.3 Personal history of malignant neoplasm of breast (principal)
CPT/HCPCS: 77061; 77065

== ENCOUNTER → 2022-12-17 | Outpatient (CLI) | payer BC ==
--- NOTE | 2022-12-17 13:38 | BD ---
EXAMINATION TYPE: Axial Bone Density DATE OF EXAM: 12/17/2022 CLINICAL HISTORY: 52 years old Female. ICD-10 CODE: [id number] HORMONE REPLACEMENT THERAPY Height: 65 Weight: 138.3 FRAX RISK QUESTIONS: Alcohol (3 or more units per day): no Family History (Parent hip fracture): no Glucocorticoids (More than 3mos): no History of Fracture in Adulthood: no Secondary Osteoporosis: 1. Type 1 Diabetes: no 2. Hyperthyroidism: no 3. Menopause before 45: no 4. Malnutrition: no 5. Chronic liver disease: no Rheumatoid Arthritis: no Current Tobacco Use: no RISK FACTORS HISTORY OF: Hip Fracture (Right/Left): no Spine Fracture: no History of Wrist Fracture: bilateral When: age 4 and age10 Surgery to Spine/Hip(right/left)/Wrist (right/left): no Family History of Osteoporosis: no Active: yes Diet low in dairy products/other sources of calcium: yes Postmenopausal woman: yes Take estrogen and/or progesterone medications: hormone mary How lon.5 years Lost more than 2 inches in height since high school: no Frequent falls: no Poor Health: no Hyperparathyroidism: no Adrenal Insufficiency: no MEDICATIONS: Prednisone or other steroids: no Thyroid Medications:no Osteoporosis Medications: Alendronate sodium once a week How Long: past 2 years Additional Medications: Calcium Additional History: RT Breast Ca. 2020 with Chemo and Radiation EXAM MEASUREMENTS: Bone mineral densitometry was performed using the [employer] System. Bone mineral density as measured about the Lumbar spine is: ----- L1-L4(G/cm2): 1.129 T Score Values are as follows: ----- L1: -0.1 ----- L2: -0.2 ----- L3: -0.5 ----- L4: -0.9 ----- L1-L4: -0.4 Z Score Values are as follows: ----- L1: 0.7 ----- L2: 0.6 ----- L3: 0.3 ----- L4: -0.1 ----- L1-L4: 0.4 Bone mineral density has: increased 4.7 % since study of: 12/16/2020 Bone mineral density about the R hip (g/cm2): 0.838 Bone mineral density about the L hip (g/cm2): 0.792 T Score values are as follows: -----R Neck: -1.7 -----L Neck: -2.0 -----R Total: -1.3 -----L Total: -1.7 Z Score values are as follows: -----R Neck: -0.7 -----L Neck: -1.0 -----R Total: -0.7 -----L Total: -1.0 Bone mineral density has: increased 7.5 % since study of: 12/16/2020 FRAX%s: The graph provided illustrates a 7.0% chance for a major osteoporotic fx and a 0.9% chance fo r the hips probability for fx in 10 years time. IMPRESSION: Osteopenia (T Score between -2.5 and -1). There is slightly increased risk of fracture and the patient may be considered for treatment. Re-Screen 2-5 years. NOTE: T-SCORE=SD OF THE YOUNG ADULT MEAN.
== END | disposition home or self-care (01) ==
LOC: RADBDWWP 09:58
PROVIDERS: ATTEND Internal Medicine Hematology & Oncology
DX: C50.211 Malignant neoplasm of upper-inner quadrant of right female breast (principal); M85.89 Other specified disorders of bone density and structure, multiple sites; Z79.890 Hormone replacement therapy
CPT/HCPCS: 77080